=== PATIENT | female | born 1955 | race Caucasian/White ===

== ENCOUNTER 2020-03-25 00:21 | Outpatient (CLI) | payer OTHER, SELFPAY ==
[2020-03-25 19:45] LABS: SARS-CoV-2 RNA PCR Negative
== END 2020-03-25 00:22 | disposition home or self-care (01) ==
PROVIDERS: PCP Internal Medicine; Visit Provider Internal Medicine Gastroenterology
DX: Z01.818 Encounter for other preprocedural examination (principal); Z11.59 Encounter for screening for other viral diseases; Z12.11 Encounter for screening for malignant neoplasm of colon
CPT/HCPCS: 87635; C9803; U0003

== ENCOUNTER 2020-03-27 02:25 | Day surgery (SDC) | payer OTHER, SELFPAY ==
[2020-03-20 12:44] VITALS: BMI 27.1
[2020-03-27 06:17] VITALS: BP 140/78; PULSE 69; RESP 16; TEMP 36.7; O2SAT 100; BMI 26.9
[2020-03-27] MEDS: LACTATED RINGERS 1,000 ML 150 ML IV CONT (06:30)
--- NOTE | 2020-03-27 07:04 | WPDANESEPPF ---
Anes - Initial Pre Proc Eval Procedure: Operation Date: 03/27/20 07:30 Proposed Procedures p Esophagogastroduodenoscopy & Screening Colonoscopy - Dung Mackey MD Date/Time: 03/27/20 07:04 Surgeon: Dung Mackey MD Pre Op Diagnosis: Heart Burn/ Neoplasm Screening/ Hx Colon Polyps Patient Data Age: 65 Gender: F Height: 1.65 m Weight: 73.5 kg Last Vital Signs Temp 36.7 C 03/27/20 06:17 Pulse 69 03/27/20 06:17 Resp 16 03/27/20 06:17 BP 140/78 03/27/20 06:17 Pulse Ox 100 03/27/20 06:17 Allergies Allergy/AdvReac Type Severity Reaction Status Date / Time esomeprazole Allergy Severe PAIN Verified 03/27/20 06:16 Home Medications Medication Instructions Recorded Confirmed Type calcium carb-vit [id number] 1 cap PO WEEKLY 03/20/20 03/20/20 History cetirizine [Zyrtec] 10 mg PO DAILY 03/20/20 03/20/20 History famotidine [Pepcid] 20 mg PO BID 03/20/20 03/20/20 History folic acid 0.8 mg PO DAILY 03/20/20 03/20/20 History metoprolol tartrate 50 mg PO DAILY 03/20/20 03/20/20 History pravastatin 20 mg PO DAILY 03/20/20 03/20/20 History Patient hx anesthesia problems: none Family hx anesthesia problems: none PMFSH Past Medical History Medical History (Updated 03/27/20 @ 07:06 by Oleg Lees MD) HTN (hypertension) Hypercholesterolemia SHANELL (obstructive sleep apnea) Overweight (BMI 25.0-29.9) Anes - Eval Final PreProcedure Day of Procedure 03/27/20 07:04 Patient weight: overweight Heart: regular rate and rhythm Lungs: clear to auscultation and normal air movement Airway: Mallampati scale class II Neurological: alert and oriented Last oral intake: >/= 8 hours ASA classification: II Emergent: no Anesthetic plan: proceed Anesthesia type and monitoring: general GIVS Informed Consent: The patient's anesthetic plan and its attendant risks and benefits were discussed with the patient/family/POA. Questions were solicited and answers provided to the satisfaction of the patient/family/POA.
--- NOTE | 2020-03-27 07:13 | WPDGICN ---
Assessment and Plan Assessment and plan (1) History of colon polyps: Code(s): Z86.010 - Personal history of colonic polyps Status: Acute (2) Family history of colonic polyps: Code(s): Z83.71 - Family history of colonic polyps Status: Acute Assessment and Plan: Patient's sister has had colon polyps as well as duodenal polyps. Plan is for patient to have an EGD to assess for duodenal polyps given her ongoing history of heartburn. A colonoscopy will be performed because patient had colon polyps herself as well as her sister having colon polyps. (3) Heartburn: Code(s): R12 - Heartburn Status: Acute Assessment and Plan: Because of chronic heartburn an EGD will be performed. Patient also has a sister with a history of adenomatous duodenal polyps. Plan to continue Pepcid 20 mg p.o. b.i.d. although this may be decreased to b.i.d. pending results of EGD. GI Consult Note Consult date/time: 03/27/20 07:13 HPI: Erika Greene is a 65 year old female Seen in evaluation at the request of Dr Burris. patient has a long history of heartburn and acid reflux. She states symptoms have improved on starting Pepcid 20 mg p.o. b.i.d.. She denies any weight loss. She denies any bleeding. Pain is worse with spicy foods. She denies dysphagia. Family history is significant her sister had adenomatous duodenal polyps. Patient is very concerned. For this reason EGD will be performed. Patient has a past medical history of large cecal colon polyp described as a villous adenoma. She also presents today for follow-up examination. Family history is significant there sister has had colon polyps as well. Patient states that her own weight appetite bowel movements are normal. She denies abdominal pain or bleeding in her stools. Review of Systems Review of Systems: All systems reviewed & are unremarkable except as noted in HPI and below PMFSH Past Medical History Medical History HTN (hypertension) Hypercholesterolemia SHANELL (obstructive sleep apnea) Overweight (BMI 25.0-29.9) Meds Home Medications and Allergies Home Medications Medication Instructions Recorded Confirmed Type calcium carb-vit [id number] 1 cap PO WEEKLY 03/20/20 03/20/20 History cetirizine [Zyrtec] 10 mg PO DAILY 03/20/20 03/20/20 History famotidine [Pepcid] 20 mg PO BID 03/20/20 03/20/20 History folic acid 0.8 mg PO DAILY 03/20/20 03/20/20 History metoprolol tartrate 50 mg PO DAILY 03/20/20 03/20/20 History pravastatin 20 mg PO DAILY 03/20/20 03/20/20 History Allergies Allergy/AdvReac Type Severity Reaction Status Date / Time esomeprazole Allergy Severe PAIN Verified 03/27/20 06:16 Vital Signs Vital Signs - 24 hr 03/27/20 06:17 Temperature 98.0 F Pulse Rate 69 Respiratory Rate 16 Blood Pressure 140/78 Pulse Oximetry 100 Exam Narrative: Exam Narrative: Physical exam reveals Vital Signs to be stable. HEENT exam unremarkable. Lungs are clear to auscultation and percussion. Heart is without murmur or extra sounds. Abdominal exam bowel sounds present soft nontender with no hepatosplenomegaly. Digital external rectal exam normal.
[2020-03-27 07:56] VITALS: BP 130/78; PULSE 83; RESP 22; O2SAT 99
--- NOTE | 2020-03-27 07:56 | SUR.OPER ---
Pt's spouse updated regarding procedure start/stop time.
[2020-03-27 08:06] VITALS: BP 138/88; PULSE 75; RESP 18; O2SAT 100
[2020-03-27 08:16] VITALS: BP 130/82; PULSE 67; RESP 20; O2SAT 98
== END 2020-03-27 08:36 | disposition home or self-care (01) ==
PROVIDERS: PCP Internal Medicine; Visit Provider Internal Medicine Gastroenterology
PROC: 0DJ08ZZ Inspection of Upper Intestinal Tract, Via Natural or Artificial Opening Endoscopic (ICD-10-PCS; CPT 43235; principal; 2020-03-27 07:30)
DX: Z12.11 Encounter for screening for malignant neoplasm of colon (principal); K57.30 Diverticulosis of large intestine without perforation or abscess without bleeding; Z98.0 Intestinal bypass and anastomosis status; Z90.49 Acquired absence of other specified parts of digestive tract; Z86.010 Personal history of colon polyps; Z83.71 Family history of colonic polyps; Q39.4 Esophageal web; R12 Heartburn; I10 Essential (primary) hypertension; E78.00 Pure hypercholesterolemia, unspecified; G47.33 Obstructive sleep apnea (adult) (pediatric)
CPT/HCPCS: 45378; 43239; 43450; 87081; J7120

== ENCOUNTER → 2020-04-29 12:15 | Outpatient (CLI) | payer OTHER, SELFPAY ==
--- NOTE | ~2020-04-29 | DEXA_ITS ---
Bone Density Report Name: Erika Greene Age: 65 Sex: Female Ethnicity: White Date of : 1955 Indication: postmenopausal; screening for osteoporosis; height loss; Referring Provider: Thomas Gilmore Study: Bone densitometry was performed. Exam Date: April 29, 2020 Accession number: [id number] Bone Density: Region BMD T-score Z-score Classification AP Spine (L1-L4) 1.170 1.1 2.8 Normal Femoral Neck (Left) 0.866 0.2 1.6 Normal Total Hip (Left) 0.930 -0.1 1.0 Normal Femoral Neck (Right) 0.850 0.0 1.4 Normal Total Hip (Right) 0.928 -0.1 1.0 Normal Total Hip Mean 0.929 -0.1 1.0 Normal World Health Organization criteria for BMD impression classify patients as: Normal (T-score at or above -1.0), Osteopenia (T-score between -1.0 and -2.5), or Osteoporosis (T-score at or below -2.5). 10-year Fracture Risk: FRAX not reported because: All T-scores for Spine Total, Hip Total, Femoral Neck at or above -1.0 Previous Exams: Region Exam Age BMD T-score BMD Change BMD Change Date g/cm2 vs Baseline vs Previous AP Spine(L1-L4) 04/29/2020 65 1.170 1.1 -0.035* -0.017 01/31/2018 62 1.187 1.3 -0.018 -0.018 05/13/2011 56 1.205 1.4 Total Hip(Left) 04/29/2020 65 0.930 -0.1 0.002 0.006 01/31/2018 62 0.924 -0.1 -0.003 -0.003 05/13/2011 56 0.927 -0.1 Total Hip(Right) 04/29/2020 65 0.928 -0.1 -0.041* -0.052* 01/31/2018 62 0.980 0.3 0.011 0.011 05/13/2011 56 0.969 0.2 *Denotes significance at 95% confidence level, LSC for AP Spine = 0.022 g/cm2, LSC for Total Hip = 0.027 g/cm2 Clinical Information Provided by Patient: Has used the following medications: Vitamin D Patient maximum height was 65.5 Menopause Age: 58 No regular weight bearing exercise Onset of menses at age 15 Number of children 1 Impression: The patient has normal bone mass. The BMD for the Total Hip(Right) decreased, changing by -0.052 since the last DXA exam. Discussion: BONE DENSITY IS ABOVE THE MINIMUM DESIRABLE LEVEL AT ALL SKELETAL SITES TESTED. This patient?s bone mineral density is above the minimum desirable level (T-score -1.0 or better) at all sites measured. The patient should follow a healthful lifestyle (good nutrition with adequate calcium and vitamin D, and appropriate weight-bearing exercise). Follow-Up: Consider ashlee
== END ==
PROVIDERS: Visit Provider Obstetrics & Gynecology
DX: Z13.820 Encounter for screening for osteoporosis (principal); Z78.0 Asymptomatic menopausal state
CPT/HCPCS: 77080